=== PATIENT | female | born 1955 | race Caucasian/White ===

== ENCOUNTER 2016-03-20 16:37 | Emergency (ER) | payer OTHER ==
[~2016-03-20] VITALS: Ht 160 cm; Wt 54.4 kg
[2016-03-20 17:02] VITALS: BP 184/80
[2016-03-20] MEDS ORDERED: ACETAMINOPHEN/CODEINE#3 (300/30mg) TAB PO ONE (18:15)
== END 2016-03-20 18:39 | disposition home or self-care (01) ==
LOC: ER 16:50
DX: S52.502A Unspecified fracture of the lower end of left radius, initial encounter for closed fracture (principal); Z88.1 Allergy status to other antibiotic agents; W19.XXXA Unspecified fall, initial encounter; Y93.89 Activity, other specified; Y99.8 Other external cause status; Y92.89 Other specified places as the place of occurrence of the external cause
CPT/HCPCS: 29125; 73110